=== PATIENT | female | born 1960 | race Caucasian/White ===

== ENCOUNTER 2020-01-12 07:40 | Day surgery (SDC) | payer OTHER ==
[2020-01-10 14:59] VITALS: BMI 18.7
[2020-01-12] MEDS ORDERED: PROPOFOL 20 ML ONE ×3 (08:09)
[2020-01-12] MEDS ORDERED: LIDOCAINE HCL/PF 2% SDV 5ML VIAL ONE ×2 (08:09→08:50)
[2020-01-12] MEDS ORDERED: EPINEPHrine 1:10,000 (P-F SYR) 1 MG/10 ML DISP.SYRIN ONE (08:46)
[2020-01-12 09:21] VITALS: TEMP 99
[2020-01-12 09:42] VITALS: BP 105/65; PULSE 72
== END 2020-01-12 09:43 | disposition home or self-care (01) ==
LOC: FASU-ENDO 07:40
PROVIDERS: ATTEND Internal Medicine Gastroenterology
PROC: 0DB68ZX Excision of Stomach, Via Natural or Artificial Opening Endoscopic, Diagnostic (ICD-10-PCS; 2020-01-12)
PROC: 0DB48ZX Excision of Esophagogastric Junction, Via Natural or Artificial Opening Endoscopic, Diagnostic (ICD-10-PCS; 2020-01-12)
PROC: 0D568ZZ Destruction of Stomach, Via Natural or Artificial Opening Endoscopic (ICD-10-PCS; 2020-01-12)
PROC: 0DB98ZX Excision of Duodenum, Via Natural or Artificial Opening Endoscopic, Diagnostic (ICD-10-PCS; principal; 2020-01-12 08:41)
DX: K29.70 Gastritis, unspecified, without bleeding (principal); K31.811 Angiodysplasia of stomach and duodenum with bleeding; K21.9 Gastro-esophageal reflux disease without esophagitis
CPT/HCPCS: 88305-TC; 88342-TC

== ENCOUNTER 2021-02-21 09:11 | Day surgery (SDC) | payer OTHER ==
[2021-02-19 12:15] VITALS: BMI 19.3
[2021-02-21] MEDS ORDERED: PROPOFOL 20 ML ONE ×4 (10:31)
[2021-02-21 10:50] VITALS: TEMP 97.8
[2021-02-21 11:27] VITALS: BP 118/77; PULSE 89
== END 2021-02-21 12:18 | disposition home or self-care (01) ==
LOC: FASU-ENDO 09:11
PROVIDERS: ATTEND Internal Medicine Gastroenterology
PROC: 0DB98ZX Excision of Duodenum, Via Natural or Artificial Opening Endoscopic, Diagnostic (ICD-10-PCS; 2021-02-21)
PROC: 0DB68ZX Excision of Stomach, Via Natural or Artificial Opening Endoscopic, Diagnostic (ICD-10-PCS; 2021-02-21)
PROC: 0DB48ZX Excision of Esophagogastric Junction, Via Natural or Artificial Opening Endoscopic, Diagnostic (ICD-10-PCS; 2021-02-21)
PROC: 0DBN8ZX Excision of Sigmoid Colon, Via Natural or Artificial Opening Endoscopic, Diagnostic (ICD-10-PCS; principal; 2021-02-21 10:07)
DX: R10.13 Epigastric pain (principal); Z12.11 Encounter for screening for malignant neoplasm of colon; D12.5 Benign neoplasm of sigmoid colon; K64.0 First degree hemorrhoids; K29.50 Unspecified chronic gastritis without bleeding; K20.90 Esophagitis, unspecified without bleeding
CPT/HCPCS: 88305-TC; 88342-TC